=== PATIENT | male | born 1935 | race Caucasian/White ===

== ENCOUNTER 2016-09-14 17:58 | Inpatient (IN) ==
[2016-09-14] MEDS ORDERED: SODIUM CHLORIDE 0.9% 1,000 ML IV STA (19:50)
[2016-09-14] MEDS ORDERED: ONDANSETRON 4 MG/2 ML VIAL IV STA (19:50)
[2016-09-14] MEDS ORDERED: METOCLOPRAMIDE 10 MG/2 ML VIAL IV STA (19:50)
[2016-09-14] MEDS ORDERED: KETOROLAC 30 MG/1 ML VIAL IV STA (19:50)
[2016-09-14] MEDS ORDERED: LEVOFLOXACIN INJ 750 MG in PREMIX 1 EACH IV STA (19:50)
[2016-09-14] MEDS ORDERED: PHENAZOPYRIDINE 95 MG TABLET PO STA (19:50)
--- NOTE | 2016-09-14 19:54 | Emergency Department Note ---
Arrival - Arrival Chief Complaint: Abdominal / Flank Pain Stated Complaint: lower back pain and passing blood through kidneys ED Nursing Triage Note: left flank pain for the past week reports has started urinating blood. pt has hx of kidney stones but has not had any in awhile Mode of Arrival: Ambulatory Limitations: No Limitations Source: Patient Time Seen by Provider: 09/14/16 19:50 - History of Present Illness HPI Narrative: This 81-year-old white male presents with one-week of intermittent flank pain that in last 24 hours is become much more severe and associated with nausea and vomiting as well as onset of hematuria today. The patient does have a history of prior renal stone disease and is followed by Dr. Kam. He denies any chills or fever in association with this but does have some dysuria. Currently he appears uncomfortable but in no acute medical distress. Onset (ago): week(s) (Patient presents 1 week post onset of symptoms) Allergies/Adverse Reactions: Allergies Allergy/AdvReac Type Severity Reaction Status Date / Time Iodinated Contrast Media - AdvReac Verified 03/22/16 10:27 Oral and [Iodinated Contrast Media - IV Dye] Home Medications: Home Medications Medication Instructions Recorded Confirmed Type Apixaban [Eliquis] 2.5 mg PO BID 04/30/15 03/16/16 History Atorvastatin Calcium 20 mg PO BEDTIME 04/30/15 03/16/16 History Cilostazol [Pletal] 50 mg PO BID 04/30/15 03/16/16 History Losartan/Hydrochlorothiazide 1 each PO DAILY 04/30/15 03/16/16 History [Losartan-Hctz 100-12.5 mg Tab] Metformin HCl [Glucophage] 1,000 mg PO BID 04/30/15 03/16/16 History Nebivolol [Bystolic] 5 mg PO DAILY 03/16/16 03/16/16 History amLODIPine [Norvasc] 2.5 mg PO DAILY 03/16/16 03/16/16 History glipiZIDE [Glipizide] 5 mg PO BID 03/16/16 03/16/16 History Review of System - Review of System 12 point system: reviewed and no additional remarkable complaints except as stated - Review of System Constitutional: Present: as per HPI Gastrointestinal: Present: as per HPI Genitourinary male: Present: as per HPI Medical,Surgical,& Family Hx - Medical History Cardio: History of: Hypertension Neurology: History of: TIA HEENT: History of: Eye Problem (bilat cataracts), Glaucoma (Slight) Endocrine: History of: Diabetes Mellitus (NIDDM) Genitourinary: History of: Kidney Stones, Prostate Problems (history of prostate cancer) Other: History of: Cancer (prostate) - Surgical History Cardiac Surgeries: Patient Denies: Cardiac Catheterization Neurologic Surgeries: Patient denies: Neurologic Surgery HEENT Surgeries: Surgical HX of: Eye Surgery (bilat cataracts removed), Tonsilectomy & Adenoidectomy Abdominal Surgeries: Surgical HX of: Cholecystectomy, Colonoscopy, EGD Patient denies: Appendectomy, Hernia Repair Reproductive Surgeries: Surgical HX of;: Prostate Surgery (12 years ago) Orthopedic Surgeries: Surgical HX of;: Total Knee Replacement (bilateral) - Family History Family History: Reports;: Family Cancer (brain mother), Family Hypertension - Social History Smoking Status: Never smoker Exam Physical Examination: GENERAL: Well developed, well nourished elderly white male in no acute distress. HEENT: Normocephalic. No trauma. Moist mucous membranes. EOMI. PERRLA. ENT NML NECK: Supple. No adenopathy. CARDIAC: Regular. No murmurs. Heart rate 82 CHEST: Clear to auscultation. No respiratory distress. O2 sat 97% ABDOMEN: Soft. Tender left CVA and left lower quadrant with hypoactive bowel sounds. EXTREMITIES: No trauma. Normal ROM. No pedal edema. SKIN: No diaphoresis. No rash. NEURO: Alert. Neuro intact. No focal deficits. Vital Signs: Vital Signs Temperature 99.1 F 09/14/16 18:18 Pulse Rate 61 09/14/16 20:32 Respiratory Rate 20 09/14/16 20:32 Blood Pressure 167/67 09/14/16 20:32 O2 Sat by Pulse Oximetry 99 09/14/16 20:32 Course - Reevaluation(s) Reevaluation #1: Discussed with family the need for hospitalization given his infection and renal function - Consultations Consultation #1: Discussed with the hospitalist service who will admit for further evaluation treatment. Results - Labs CBC & BMP: 09/14/16 20:10 09/14/16 20:10 Lab Results: I have reviewed the patients labs Labs: I reviewed the lab and noted the elevated white blood cell count as well as a renal azotemia - Diagnostic Findings Procedure: CT Abdomen and Pelvis: image reviewed by me, report reviewed by me ( Large left renal pelvis calculi with enlarged kidney but no evidence of ureteral stone) Disposition Clinical Impression: RENAL STONE DISEASE Case discussed with: patient, patient's family Disposition: Still a Patient Condition: Stable Time of Disposition: 21:47
[2016-09-14] MEDS ORDERED: METOCLOPRAMIDE 10 MG/2 ML VIAL ONE (20:06)
[2016-09-14] MEDS ORDERED: LEVOFLOXACIN INJ 150 ML IV ONE (20:06)
[2016-09-14] MEDS ORDERED: KETOROLAC 30 MG/1 ML VIAL ONE (20:06)
[2016-09-14] MEDS ORDERED: ONDANSETRON 4 MG/2 ML VIAL ONE (20:06)
[2016-09-14] MEDS ORDERED: PHENAZOPYRIDINE 95 MG TABLET ONE (20:07)
[2016-09-14 20:22] LABS: Basophils # 0.1 10*3/uL (0.0-0.2); Basophils % 0.4 % (0.0-0.8); Eosinophils # 0.5 10*3/uL (0.0-0.87); Eosinophils % 3.8 % (0.00-10.9); Hematocrit 43.4 VOL% (42.0-52.0); Hemoglobin 13.9 GM/DL (14.0-18.0); Immature Granulocytes % 0.6 %; Immature Granulocytes Absolute 0.08 #; Lymphocytes # 1.7 10*3/uL (1.4-4.0); Lymphocytes % 12.1 % (21.2-54.2); Mean Corpuscular Hemoglobin 27 PG (27-34); Mean Corpuscular Volume 85.4 FL (87-102); Mean Platelet Volume 10.3 FL (9.6-12.0); Monocytes # 0.6 10*3/uL (0.11-0.8); Neutrophils # 11.3 10*3/uL (1.4-7.4); Neutrophils % 79.1 % (38.7-73.9); Platelet Count 276 T/CUMM (130-400); Red Blood Count 5.08 MC/CUMM (3.8-5.5); Red Cell Distribution Width 14.6 % (9.3-17.3); White Blood Count 14.2 T/CUMM (4-12)
[2016-09-14 20:27] LABS: Apearance,Urine CLEAR (Clear); Bilirubin,Urine Negative (Negative); Blood, Urine Small mg/dL (Negative); Glucose,Urine (UA) Negative (Negative); Ketones,Urine Negative (Negative); Nitrite,Urine Negative (Negative); Protein,Urine 100 MG/DL; RBC,Urine 3 /HPF (0-4); Squamous Epithelial Cell,Urine Occasional /HPF (0-10); Urine Color Yellow (Yellow); Urine Specific Gravity 1.012 (1.001-1.035); Urine Urobilinogen < 2.0 EU/DL (0.2-1.0); WBC,Urine 1 /HPF (0-6)
--- NOTE | 2016-09-14 20:27 | CT Report ---
Referring physician: Ricky Sheldon EXAM: CT abdomen and pelvis without contrast DATE: 09/14/2016 COMPARISON: 04/08/2014 REASON: Left leg pain TECHNIQUE: Axial images of the abdomen and pelvis were obtained without the use of contrast. Coronal and sagittal reformatted images were also provided. Total DLP is 1410.50 mGy*cm. FINDINGS: Chronic scarring at the lung bases with cardiomegaly and small amount of pericardial fluid. Coronary artery calcifications with diffuse arterial calcifications. Prior cholecystectomy with calcified granuloma in the liver. The spleen and adrenal glands have an unremarkable appearance. Persistent fatty infiltration of the pancreas. Cortical scarring in the kidneys with small cysts including hyperdense cyst. 2.7 mm, 2.2 mm, 2.9 mm upper pole, 6.9 mm midpole and 2.4 mm lower pole right and 2 mm midpole, 7 mm midpole, and 3.6 mm 4.7 mm lower pole left renal calculi. 9.7 mm and 14.3 mm calculi in the minimally dilated left renal pelvis. The left kidney is larger in size when compared to the previous scans. The abdominal aorta is normal in size with no adjacent adenopathy. Small hiatal hernia with no dilatation of the small bowel. Small fat-containing umbilical hernia. No evidence of diverticulitis, appendicitis, free air or, or free fluid. Increased fat deposition. Decompressed urinary bladder with apparent postoperative findings in the thyroid bed. Degenerative changes are noted. Small fat-containing bilateral inguinal hernias. IMPRESSION: 9.7 mm and 14.3 mm left renal pelvis calculi with minimal left hydronephrosis. Enlargement of the left kidney which can be seen with obstruction. Bilateral nephrocalcinosis with cortical scarring and small renal cysts including hyperdense cysts. Diffuse arterial calcifications. Prior cholecystectomy and apparent postoperative findings in the prostate. Small hiatal hernia, fat-containing of local hernia, and bilateral inguinal hernias. The CT exam was performed using one or more of the following dose reduction techniques: Automated exposure control and adjustment of the mA and/or kV according to patient size. PROCEDURE INTERPRETED AT [facility] DEPARTMENT OF RADIOLOGY Final Report Signed by: Dr. Joann Heck
[2016-09-14 20:49] LABS: Albumin 3.8 G/DL (3.4-5.0); Bilirubin,Total 0.4 MG/DL (0.2-1.0); Calcium 9.7 MG/DL (8.5-10.1); Potassium 4.8 MMOL/L (3.5-5.1); Total Protein 6.8 G/DL (6.4-8.3)
[2016-09-14] MEDS ORDERED: MORPHINE 2 MG/1 ML SYRINGE IV PRN (21:51)
[2016-09-14] MEDS ORDERED: ONDANSETRON 4 MG/2 ML VIAL IV PRN (21:51)
[2016-09-14] MEDS ORDERED: ACETAMINOPHEN 325 MG TABLET PO PRN (21:51)
[2016-09-14] MEDS ORDERED: PROMETHAZINE 25 MG/1 ML VIAL IM PRN (21:51)
[2016-09-14] MEDS ORDERED: ENOXAPARIN 30 MG/0.3 ML SYRINGE SUBCUT SCH (22:00)
--- NOTE | 2016-09-14 22:54 | Hospitalist History & Physical ---
Assessment and Plan (1) Pyelonephritis Status: Acute Assessment and plan: Patient be admitted to the hospitalist service for treatment of pyelonephritis with leukocytosis, low-grade fever, hematuria, left flank pain and evidence of stone or passed stone. Consult for urology. Follow-up urine culture. Levaquin started. Current Visit: Yes (2) Left flank pain Status: Acute Assessment and plan: Improved with treatment in the emergency department. Current Visit: Yes (3) Hematuria Status: Acute Assessment and plan: Hold Eliquis for now. Current Visit: Yes (4) History of prostate cancer Status: Acute Assessment and plan: Followed by Dr. Teddy Kam Current Visit: Yes (5) Diabetes type 2, controlled Status: Acute Assessment and plan: Continue diabetic medications with the exception of metformin due to acute kidney injury. Diabetic diet with Accu-Cheks and sliding scale insulin. Current Visit: Yes Qualifiers: Diabetes mellitus complication status: with kidney complications Diabetes mellitus complication detail: with chronic kidney disease Diabetes mellitus nursing home insulin use: without nursing home use Chronic kidney disease stage: stage 3 (moderate) Qualified Code(s): E11.22 - Type 2 diabetes mellitus with diabetic chronic kidney disease; N18.3 - Chronic kidney disease, stage 3 ( moderate) (6) Acute kidney injury Status: Acute Assessment and plan: Baseline creatinine 1.5. Mild elevation to 2.0 today Hold nephrotoxic medications including metformin and lisinopril. Current Visit: Yes History of Present Illness Chief complaint: left flank pain, blood in urine History of present illness: Mr. Cook is a 81 year old male presents with one-week of intermittent flank pain that in last 24 hours is become much more severe and associated with nausea and vomiting as well as onset of hematuria today. The patient does have a history of prior renal stone disease and is followed by Dr. Kam. He denies any chills or fever in association with this but does have some dysuria. Currently he appears uncomfortable but in no acute medical distress. He is accompanied by his in the emergency department. He reports left flank pain is improved with treatment in the emergency department. Home Medications Medication Instructions Recorded Confirmed Type Apixaban [Eliquis] 2.5 mg PO BID 04/30/15 03/16/16 History Atorvastatin Calcium 20 mg PO BEDTIME 04/30/15 03/16/16 History Cilostazol [Pletal] 50 mg PO BID 04/30/15 03/16/16 History Losartan/Hydrochlorothiazide 1 each PO DAILY 04/30/15 03/16/16 History [Losartan-Hctz 100-12.5 mg Tab] Metformin HCl [Glucophage] 1,000 mg PO BID 04/30/15 03/16/16 History Nebivolol [Bystolic] 5 mg PO DAILY 03/16/16 03/16/16 History amLODIPine [Norvasc] 2.5 mg PO DAILY 03/16/16 03/16/16 History glipiZIDE [Glipizide] 5 mg PO BID 03/16/16 03/16/16 History Allergies Allergy/AdvReac Type Severity Reaction Status Date / Time Iodinated Contrast Media - AdvReac Verified 03/22/16 10:27 Oral and [Iodinated Contrast Media - IV Dye] Medical,Surgical,& Family Hx - Medical History Cardio: History of: Hypertension Neurology: History of: TIA HEENT: History of: Eye Problem (bilat cataracts), Glaucoma (Slight) Endocrine: History of: Diabetes Mellitus (NIDDM) Genitourinary: History of: Kidney Stones, Prostate Problems (history of prostate cancer) Other: History of: Cancer (prostate) - Surgical History Cardiac Surgeries: Patient Denies: Cardiac Catheterization Neurologic Surgeries: Patient denies: Neurologic Surgery HEENT Surgeries: Surgical HX of: Eye Surgery (bilat cataracts removed), Tonsilectomy & Adenoidectomy Abdominal Surgeries: Surgical HX of: Cholecystectomy, Colonoscopy, EGD Patient denies: Appendectomy, Hernia Repair Reproductive Surgeries: Surgical HX of;: Prostate Surgery (12 years ago) Orthopedic Surgeries: Surgical HX of;: Total Knee Replacement (bilateral) - Family History Family History: Reports;: Family Cancer (brain mother), Family Hypertension - Social History Smoking Status: Never smoker Frequency of Alcohol Use: None Type of Drug Use: None Marital Status: Lives With:: Spouse Functional capacity: independent ambulation 12 point system: reviewed and no additional remarkable complaints except as stated - Genitourinary Genitourinary: Present: as per HPI, difficulty urinating, hematuria Exam - Constitutional Vitals: Period Temp Pulse Resp BP Sys/Michaels Pulse Ox Last 24 Hr 99.1 F 56-62 18-20 160-187/65-91 97-99 Exam: Constitutional System: Mild distress. No tremulousness. Head: Normocephalic, atraumatic. Ears, Nose and Throat System: No pain or tenderness. No epistaxis or discharge Eyes System: Pupils equal, round, and reactive. Extraocular muscles intact. Neck: Supple, without adenopathy, No jugular venous distention. No thyromegaly, neck mass, or prior surgery apparent. Respiratory System: Chest clear to auscultation. Cardiovascular System: Heart with regular rate and rhythm. No murmur. GI System: Abdomen soft, nontender. Normo active bowel sounds present. Musculoskeletal System: limbs with 2+ pitting bilateral pedal edema. Full distal pulses. Left flank pain and CVA tenderness persists with palpation Neurological System: No discernable sensory deficit. No aphasia Psychiatric System: Conversation is rational Results - Labs CBC & BMP: 09/14/16 20:10 09/14/16 20:10 Lab Results: I have reviewed the past 24 hour labs - Diagnostic Findings Procedure: CT Abdomen and Pelvis: image reviewed by me, report reviewed by me
[2016-09-14] MEDS ORDERED: DEXTROSE 50% 25 GM/50 ML VIAL IV PRN (23:13)
[2016-09-14] MEDS ORDERED: GLUCAGON 1 MG VIAL IM PRN (23:13)
[2016-09-14] MEDS: SODIUM CHLORIDE 0.9% 1,000 ML IV SCH (23:24)
[2016-09-15 05:37] LABS: Basophils % 0.4 % (0.0-0.8); Eosinophils # 0.6 10*3/uL (0.0-0.87); Hematocrit 36.5 VOL% (42.0-52.0); Hemoglobin 11.5 GM/DL (14.0-18.0); Immature Granulocytes % 0.4 %; Immature Granulocytes Absolute 0.04 #; Lymphocytes # 1.8 10*3/uL (1.4-4.0); Lymphocytes % 17.9 % (21.2-54.2); Mean Corpuscular HGB Conc 31.5 GM/DL (32-36); Mean Corpuscular Hemoglobin 27 PG (27-34); Mean Corpuscular Volume 86.7 FL (87-102); Monocytes # 0.7 10*3/uL (0.11-0.8); Monocytes % 7.2 % (1.7-12.7); Neutrophils # 6.9 10*3/uL (1.4-7.4); Neutrophils % 68.1 % (38.7-73.9); Platelet Count 228 T/CUMM (130-400); Red Blood Count 4.21 MC/CUMM (3.8-5.5); Red Cell Distribution Width 14.6 % (9.3-17.3); White Blood Count 10.1 T/CUMM (4-12)
[2016-09-15 06:07] LABS: Albumin 2.8 G/DL (3.4-5.0); Bilirubin,Total 0.5 MG/DL (0.2-1.0); Calcium 8.3 MG/DL (8.5-10.1); Magnesium 1.9 MG/DL (1.8-2.4); Osmolality,Calculated 293.8 MOS/KG (273-304); Potassium 4.5 MMOL/L (3.5-5.1); Total Protein 5.2 G/DL (6.4-8.3)
[2016-09-15] MEDS: SODIUM CHLORIDE 0.9% 1,000 ML IV SCH (06:51)
[2016-09-15] MEDS: INSULIN LISPRO 100 UNIT/ML SUBCUT SCH ×2 (08:46→12:46)
[2016-09-15] MEDS ORDERED: glipiZIDE 5 MG TABLET PO SCH (09:00)
[2016-09-15] MEDS ORDERED: amLODIPine 2.5 MG TABLET PO SCH (09:00)
[2016-09-15] MEDS ORDERED: PANTOPRAZOLE 40 MG TABLET PO SCH (09:00)
[2016-09-15] MEDS ORDERED: NEBIVOLOL 5 MG TABLET PO SCH (09:00)
[2016-09-15] MEDS ORDERED: CILOSTAZOL 50 MG TABLET PO SCH (09:00)
--- NOTE | 2016-09-15 11:36 | Urology Consultation ---
Assessment and Plan - Time spent with patient Time spent with patient: Greater than 30 minutes (1) Renal calculus, left Status: Acute Assessment and plan: We will hold his blood thinners. I think he can go home. I will see him next week in preparation for cystoscopy stent lithotripsy on 09/26/16. Current Visit: Yes (2) Prostate cancer Status: Acute Assessment and plan: PSAs been undetectable since surgery. No evidence of disease. Current Visit: Yes History of Present Illness - Data of Consult Patient: known to practice within the last 3 years Consult date: 09/15/16 Requesting Physician: Sonam Fajardo - Consult Narrative Reason for consult: Left flank pain History of present illness: Mr. Cook is a 81 year old male who is well known to me. Has a history of carcinoma prostate I saw him about a year ago his PSA was undetectable. He has had stones in the past. He presented to emergency room with bleeding and left flank pain. Evaluation is revealed to large stones in the left renal pelvis. He does have vascular issues and is on Eliquis and Pletal. I also added Lovenox. I recommend we stop all blood thinners. His urine is bloody. As far as I am concerned he can go home. We will give him some pain medicine and I will see him next week. I will hold the blood thinners in preparation for lithotripsy on 09/26/16. CC: Keshawn Weldon MD - Home Medications and Allergies Home Medications: Home Medications Medication Instructions Recorded Confirmed Type RX: Apixaban [Eliquis] 2.5 mg PO BID 04/30/15 09/15/16 History RX: Cilostazol [Pletal] 50 mg PO BID 04/30/15 09/15/16 History RX: Metformin HCl [Glucophage] 1,000 mg PO BID 04/30/15 09/15/16 History Nebivolol [Bystolic] 5 mg PO DAILY 03/16/16 09/15/16 History RX: glipiZIDE [Glipizide] 5 mg PO BID 03/16/16 09/15/16 History Atorvastatin [Lipitor] 40 mg PO DAILY 09/15/16 09/15/16 History RX: Amlodipine Besylate 5 mg PO DAILY 09/15/16 09/15/16 History RX: Ferrous Sulfate 325 mg PO TID 09/15/16 09/15/16 History RX: Losartan Potassium 50 mg PO DAILY 09/15/16 09/15/16 History Allergies/Adverse Reactions: Allergies Allergy/AdvReac Type Severity Reaction Status Date / Time Iodinated Contrast Media - AdvReac Verified 03/22/16 10:27 Oral and [Iodinated Contrast Media - IV Dye] 12 point system: reviewed and no additional remarkable complaints except as stated Exam - Constitutional Vitals: Period Temp Pulse Resp BP Sys/Michaels Pulse Ox Last 24 Hr 97.6 F-99.1 F 52-66 18-20 139-187/64-92 18-99 - GI/Abdominal GI/Abdominal exam: Present: hypoactive bowel sounds, soft, other (Left CVA tenderness). Absent: distended, firm, guarding, tenderness, rebound - Genitourinary Genitourinary: scrotum without lesions, cysts, edema or rash, penis with no lesions or discharge, other (Prostate is absent) Results - Labs CBC & BMP: 09/15/16 04:46 09/15/16 04:46
--- NOTE | 2016-09-15 11:48 | Discharge Summary ---
Hospital Course - Hospital Course Hospital Course: The patient is admitted to the hospital with flank pain. He is found to have ureterolithiasis with hydronephrosis. He was treated for urinary tract infection. We had consultation with Dr. Teddy Kam for urology. Dr. Kam recommended discharge home and holding anti-coagulants. Dr. Kam will arrange for lithotripsy on 23 September. Following surgery the patient will restart his usual anticoagulation. On the date of discharge, chest is clear and heart has regular rate and rhythm. Extremities are without edema. Total discharge time required 34 minutes. - Time spent with patient Time with patient DS: Greater than 30 minutes Diagnosis - Discharge Diagnosis (1) Renal calculus, left Status: Acute (2) History of prostate cancer Status: Resolved (3) Diabetes type 2, controlled Status: Chronic Discharge Plan - Discharge Data Disposition: Disch To Home/Self Care Condition at Discharge: Stable Discharge Diet: advance to your usual diet Activity: resume usual activities as tolerated - Discharge Medications New HYDROcodone/ACETAMIN 5-325 [[place] 5-325] 1 tablet PO Q4H PRN #30 tablet PRN Reason: Pain Mild (1-3) Atorvastatin [Lipitor] 20 mg PO BEDTIME tablet Continue Metformin HCl [Glucophage] 1,000 mg PO BID Atorvastatin [Lipitor] 40 mg PO DAILY Ferrous Sulfate 325 mg PO TID Amlodipine Besylate 5 mg PO DAILY Nebivolol [Bystolic] 5 mg PO DAILY glipiZIDE [Glipizide] 5 mg PO BID Losartan Potassium 50 mg PO DAILY Discontinued Apixaban [Eliquis] 2.5 mg PO BID Cilostazol [Pletal] 50 mg PO BID - Follow Up or Referral - Forms/Instructions Exam - Constitutional Vitals: Period Temp Pulse Resp BP Sys/Michaels Pulse Ox Last 24 Hr 97.6 F-99.1 F 52-66 18-20 139-187/64-92 18-99 Discharge Results Labs on day of discharge: Labs from last 24 hours 09/15/16 09/15/16 09/15/16 07:55 04:46 04:46 WBC 10.1 RBC 4.21 Hgb 11.5 L D Hct 36.5 L MCV 86.7 L MCH 27 MCHC 31.5 L RDW 14.6 Plt Count 228 MPV 11.0 Neut % (Auto) 68.1 Lymph % (Auto) 17.9 L [place] % (Auto) 7.2 Eos % (Auto) 6.0 Baso % (Auto) 0.4 Neut # (Auto) 6.9 Lymph # (Auto) 1.8 [place] # (Auto) 0.7 Eos # (Auto) 0.6 Baso # (Auto) 0.0 Immature Gran % 0.4 Nucleated RBC % 0.0 Immature Gran # 0.04 Nucleated RBCs # 0.00 Sodium 144 Potassium 4.5 Chloride 113 H Carbon Dioxide 21 Anion Gap 14.5 BUN 31 H Creatinine 1.90 H GFR Calculation 42 BUN/Creatinine Ratio 16.00 Glucose 112 H POC Glucose 114 H Calculated Osmolality 293.8 Calcium 8.3 L Magnesium 1.9 Total Bilirubin 0.50 AST 10 ALT 18 Alkaline Phosphatase 82 Total Protein 5.2 L Albumin 2.8 L Globulin 2.4 Albumin/Globulin Ratio 1.1 Urine Color Urine Appearance Urine pH Ur Specific [place] Urine Protein Urine Glucose (UA) Urine Ketones Urine Blood Urine Nitrate Urine Bilirubin Urine Urobilinogen Urine Leukocytes Urine RBC Urine WBC Ur Squamous Epith Cells Ur Culture Indicated? 09/14/16 09/14/16 09/14/16 23:09 20:10 20:10 WBC RBC Hgb Hct MCV MCH MCHC RDW Plt Count MPV Neut % (Auto) Lymph % (Auto) [place] % (Auto) Eos % (Auto) Baso % (Auto) Neut # (Auto) Lymph # (Auto) [place] # (Auto) Eos # (Auto) Baso # (Auto) Immature Gran % Nucleated RBC % Immature Gran # Nucleated RBCs # Sodium 143 Potassium 4.8 Chloride 109 H Carbon Dioxide 24 Anion Gap 14.8 BUN 33 H Creatinine 2.00 H GFR Calculation 40 BUN/Creatinine Ratio 16.00 Glucose 166 H POC Glucose 167 H Calculated Osmolality 295.0 Calcium 9.7 Magnesium Total Bilirubin 0.40 AST 12 ALT 22 Alkaline Phosphatase 102 Total Protein 6.8 Albumin 3.8 Globulin 3.0 Albumin/Globulin Ratio 1.2 Urine Color Yellow Urine Appearance Clear Urine pH 5.0 Ur Specific [place] 1.012 Urine Protein 100 Urine Glucose (UA) Negative Urine Ketones Negative Urine Blood Small Urine Nitrate Negative Urine Bilirubin Negative Urine Urobilinogen < 2.0 H Urine Leukocytes Negative Urine RBC 3 Urine WBC 1 Ur Squamous Epith Cells Occasional Ur Culture Indicated? Not indicated 09/14/16 20:10 WBC 14.2 H RBC 5.08 Hgb 13.9 L Hct 43.4 MCV 85.4 L MCH 27 MCHC 32.0 RDW 14.6 Plt Count 276 MPV 10.3 Neut % (Auto) 79.1 H Lymph % (Auto) 12.1 L [place] % (Auto) 4.0 Eos % (Auto) 3.8 Baso % (Auto) 0.4 Neut # (Auto) 11.3 H Lymph # (Auto) 1.7 [place] # (Auto) 0.6 Eos # (Auto) 0.5 Baso # (Auto) 0.1 Immature Gran % 0.6 Nucleated RBC % 0.0 Immature Gran # 0.08 Nucleated RBCs # 0.00 Sodium Potassium Chloride Carbon Dioxide Anion Gap BUN Creatinine GFR Calculation BUN/Creatinine Ratio Glucose POC Glucose Calculated Osmolality Calcium Magnesium Total Bilirubin AST ALT Alkaline Phosphatase Total Protein Albumin Globulin Albumin/Globulin Ratio Urine Color Urine Appearance Urine pH Ur Specific [place] Urine Protein Urine Glucose (UA) Urine Ketones Urine Blood Urine Nitrate Urine Bilirubin Urine Urobilinogen Urine Leukocytes Urine RBC Urine WBC Ur Squamous Epith Cells Ur Culture Indicated? DS: Provider Date of admission: 09/14/16 21:51 Primary care physician: . No PCP Attending physician on admission: Sonam Fajardo MD Consults: 09/14/16 21:51 Consult to Physician [CONS] Routine Comment: pyelonephritis Consulting Provider: Teddy Kam Person Notified: MIKAL Date Notified: 09/15/16 Time Notified: 09:07 Discharging clinician: Keshawn Weldon MD
[2016-09-15 12:48] VITALS: BP 179/70
--- NOTE | 2016-09-15 12:53 | Hospitalist Progress Note ---
Assessment and Plan - Time spent with patient Time spent with patient: Less than 30 minutes (1) Acute kidney injury Status: Acute Assessment and plan: 09/15/26 labs: renal function improvement BUN 31 down from 33; Creatinine 1.90 down from 2.00; Denies SOB, fever or chills Dr Teddy Kam following for pyelonephritis; hematuria; hx of prostate cancer : Agree with Dr Kam to hold blood thinners; Discharge home. Need to schedule for next week followup with Dr Kam in preparation of cystoscopy stent lithotripsy on 09/26/16 Will continue home medications. Discussed with Dr Weldon he agrees with discharge and followup appointment. 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 Verbalizes he had a fairly good night. Exam - Constitutional Vitals: Period Temp Pulse Resp BP Sys/Michaels Pulse Ox Last 24 Hr 97.6 F-99.1 F 52-66 18-20 139-187/64-92 18-99 General appearance: over weight - Head Head exam: Present: normal inspection - Eye Eye exam: Present: EOMI Pupils: Present: [place] - Neck Neck exam: Present: normal inspection - Respiratory Respiratory exam: Present: clear to auscultation bilaterally - Cardiovascular Cardiovascular exam: Present: regular rate and rhythm - GI/Abdominal GI/Abdominal exam: Present: normal bowel sounds, soft. Absent: guarding, tenderness, rebound - Extremities Exam Extremities exam: Present: full ROM - Neurological Exam Neurological exam: Present: alert, oriented X3, CN II-XII intact - Skin Skin exam: Present: normal color, warm, dry Results - Labs CBC & BMP: 09/15/16 04:46 09/15/16 04:46 Lab Results: I have reviewed the past 24 hour labs Specialty Discharge - Follow Up or Referrals Follow up with: Teddy Kam MD [Physician] - 09/21/16 1:30 pm (KUB to be done at 1100 at [facility] admissions desk)
[2016-09-15] MEDS ORDERED: ATORVASTATIN 20 MG TABLET PO SCH (21:00)
[2016-09-15] MEDS ORDERED: LEVOFLOXACIN INJ 250 MG in PREMIX 1 EACH IV SCH (21:00)
== END 2016-09-15 14:00 | disposition home or self-care (01) | DRG 690 ==
LOC: N.ED 17:58 → N.EDINP 21:51 → SUATTDRO 21:51 → N.5E 22:45
PROVIDERS: ADMIT Family Medicine; ATTEND Internal Medicine

== ENCOUNTER 2019-07-17 13:00 | Observation (INO) ==
[2019-07-17] MEDS ORDERED: GLUCAGON 1 MG VIAL IM PRN ×2 (16:44→16:54)
[2019-07-17] MEDS ORDERED: DOCUSATE SODIUM 100 MG CAPSULE PO PRN (16:44)
[2019-07-17] MEDS ORDERED: ACETAMINOPHEN 325 MG TABLET PO PRN (16:44)
[2019-07-17] MEDS ORDERED: DEXTROSE 50% 25 GM/50 ML VIAL IV PRN (16:44)
[2019-07-17] MEDS ORDERED: hydrALAZINE 20 MG/1 ML VIAL IV PRN (16:44)
[2019-07-17] MEDS ORDERED: ONDANSETRON 4 MG/2 ML VIAL IV PRN (16:44)
[2019-07-17] MEDS ORDERED: DEXTROSE 10% 250 ML BAG IV PRN (16:54)
[2019-07-17 17:30] LABS: Risk Ratio 3.51; Thyroid Stimulating Hormone 2.71 uIU/ml (0.358-3.74); VLDL CHOLESTEROL 23.4 MG/DL
[2019-07-17] MEDS: INSULIN LISPRO 100 UNIT/ML SUBCUT SCH (22:05)
[2019-07-18 05:31] LABS: Basophils # 0.1 10*3/uL (0.0-0.2); Basophils % 0.8 % (0.0-0.8); Eosinophils # 0.5 10*3/uL (0.0-0.87); Eosinophils % 5.4 % (0.00-10.9); Hematocrit 42.8 VOL% (42.0-52.0); Hemoglobin 13.4 GM/DL (14.0-18.0); Immature Granulocytes % 0.5 %; Immature Granulocytes Absolute 0.04 #; Lymphocytes # 1.6 10*3/uL (1.4-4.0); Lymphocytes % 19.4 % (21.2-54.2); Mean Corpuscular HGB Conc 31.3 GM/DL (32-36); Mean Corpuscular Volume 93.2 FL (87-102); Mean Platelet Volume 10.8 FL (9.6-12.0); Monocytes % 7.2 % (1.7-12.7); Neutrophils % 66.7 % (38.7-73.9); Platelet Count 222 T/CUMM (130-400); Red Blood Count 4.59 MC/CUMM (3.8-5.5); Red Cell Distribution Width 12.8 % (9.3-17.3); White Blood Count 8.4 T/CUMM (4-12)
[2019-07-18 05:47] LABS: Calcium 8.8 MG/DL (8.5-10.1); Osmolality,Calculated 281.8 MOS/KG (273-304)
[2019-07-18] MEDS ORDERED: APIXABAN 5 MG TABLET PO SCH (10:00)
[2019-07-18] MEDS ORDERED: LOSARTAN 50 MG TABLET PO SCH (10:00)
[2019-07-18] MEDS ORDERED: amLODIPine 5 MG TABLET PO SCH (10:00)
[2019-07-18] MEDS: INSULIN LISPRO 100 UNIT/ML SUBCUT SCH ×2 (12:25→12:26)
[2019-07-18 14:17] VITALS: BP 167/57
[2019-07-18] MEDS ORDERED: FERROUS SULFATE 325 MG TABLET PO SCH (15:00)
[2019-07-18] MEDS ORDERED: glipiZIDE 10 MG TABLET PO SCH (17:00)
[2019-07-18] MEDS ORDERED: INSULIN GLARGINE 100 UNIT/ML SUBCUT SCH (21:00)
[2019-07-19] MEDS ORDERED: allopurinoL 100 MG TABLET PO SCH (09:00)
[2019-07-19] MEDS ORDERED: ATORVASTATIN 40 MG TABLET PO SCH (09:00)
== END 2019-07-18 15:55 | disposition home or self-care (01) ==
LOC: N.2E
PROVIDERS: ADMIT Internal Medicine; ATTEND Internal Medicine